=== PATIENT | male | born 1980 | race Caucasian/White ===

== ENCOUNTER 2022-04-16 10:49 | Emergency (ER) | payer OTHER, SELFPAY ==
[2022-04-16 10:50] VITALS: BP 141/92; PULSE 91; RESP 18; TEMP 36.7; O2SAT 100
--- NOTE | 2022-04-16 10:53 | ECG_ITS ---
Measurements Intervals [place] Rate: 77 P: 51 WA: 133 QRS: 49 QRSD: 93 T: 9 QT: 336 QTc: 381 Interpretive Statements SINUS RHYTHM NONSPECIFIC T-WAVE ABNORMALITY NO PREVIOUS ECG AVAILABLE FOR COMPARISON Electronically Signed On 04-16-2022 15:02:17 [facility] by Carmen Russ M.D.
--- NOTE | 2022-04-16 10:57 | ED.GENADULT ---
HPI - General Adult General Chief complaint: Unspecified Stated complaint: nausea flu achey Time Seen by Provider: 04/16/22 10:49 Source: patient Mode of arrival: ambulatory Limitations: no limitations History of Present Illness HPI narrative: 41-year-old male presented for complaint of multiple concerns. He states 3 days ago had several episodes vomiting which resolved after a few hours. Endorses mild epigastric, left-sided abdominal pain and bloating with decreased appetite. He also reports left/mid chest pain rates 1/10, and reports feeling somewhat dizzy, tired, and weak. Reports fever 2 days ago of 101. Also states today his hands are blue in color. Endorses LBM today. Currently denies nausea, vomiting or diarrhea. Patient is a current smoker, 1-1.5 ppd. Also reports heavy alcohol use quit a few weeks ago. He did drink alcohol the day before symptoms started. 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 Patient DayQuil for symptoms. Related Data Home Medications Medication Instructions Recorded Confirmed testosterone cypionate 200 mg/mL 200 mg IM ONCE 01/15/22 04/16/22 intramuscular oil Allergies Allergy/AdvReac Type Severity Reaction Status Date / Time No Known Allergies Allergy Unverified 04/16/22 11:02 Review of Systems Review of Systems: ROS per HPI All systems reviewed & are unremarkable except as noted in HPI and below PMFSH Past Medical History Medical History Anxiety Elevated white blood cell count Inflammatory arthritis Osteoarthritis, hip, bilateral Surgical History Surgical History History of vasectomy Hx of tonsillectomy Family History Family History Grandparent Acute myocardial infarction Mother Family history of malignant neoplasm of breast in first degree relative Social History Social History Smoking packs per day: 0.5 Smoking cigarettes per day: 10.0 Smoking status: Current every day smoker Second hand tobacco smoke exposure: Yes Alcohol intake: current Drinks per week: 7 Substance use: never Comments At time of signature, I have reviewed and agree with nursing past medical, surgical, social and family history unless otherwise noted. Please see nursing chart for further information. There is no relevant family history pertinent to the presenting complaint Exam Narrative: GENERAL: Well-appearing, well-nourished, and in no acute distress. HEAD: Normocephalic, atraumatic. EYES: EOMI. No redness or drainage. Conjunctivae normal. ENT: Mucous membranes pink and moist. No rhinorrhea. TMs normal bilaterally. Throat normal. Uvula midline. NECK: Normal AROM. Supple. No lymphadenopathy. CHEST: Clear to auscultation. No reproducible cp, nontender chest. HEART: Regular rate and rhythm. No murmur appreciated. Normal peripheral pulses. ABDOMEN: Soft, nontender, nondistended, normal active bowel sounds. No CVA tenderness. MUSCULOSKELETAL: No bony tenderness. Nontender upper back with palpation. EXTREMITIES: Normal range of motion. bilateral hands hol[place] in color, warm. Radial pulses palpable and equal SKIN: Warm, dry, no rash. Capillary refill normal. Normal skin turgor. NEURO: No focal deficits. Alert and oriented x3. Gait steady. PSYCH: Normal affect. Course Course Emergency Course: Patient is aware of diagnosis, understands and agrees to treatment plan. Anticipatory guidance given. Portions of this record may have been created with voice recognition software Level of Care: Express Care Visit Vital Signs Vital signs: Vital Signs Temperature 98.1 F 04/16/22 10:50 Pulse Rate 91 04/16/22 10:50 Respiratory Rate 18 04/16/22 10:50 Blood Pressure 141/92 H 04/16/22 10:50
== END 2022-04-16 11:10 | disposition short-term general hospital (02) ==
PROVIDERS: Emergency Provider Nurse Practitioner Family; PCP Internal Medicine
DX: R07.9 Chest pain, unspecified (principal); F17.210 Nicotine dependence, cigarettes, uncomplicated; M16.0 Bilateral primary osteoarthritis of hip; Z98.52 Vasectomy status
CPT/HCPCS: 93005; 99213; G0463